=== PATIENT | female | born 1940 | race Caucasian/White ===

== ENCOUNTER 2018-05-28 08:09 | Day surgery (SDC) | payer MEDICARE, BC ==
[~2018-05-28 08:09] MED LIST: SOD CHLORIDE 0.45% 1,000 ML IV
[2018-05-28 09:06] LABS: ADD MAN DIFF? NO
[2018-05-28 09:09] LABS: BASOPHIL # 0.1 10^3/ul (0.0-0.1); BASOPHILS % 0.6 % (0.0-2.0); EOSINOPHILS # 0.5 10^3/ul (0.0-0.5); HEMATOCRIT 37.1 % (37.0-47.0); HEMOGLOBIN 12.1 g/dl (12.0-16.0); LYMPHOCYTES # 1.4 10^3/ul (0.8-2.9); LYMPHOCYTES % 16.2 % (15.0-51.0); MEAN CORPUSCULAR HEMOGLOBIN 29.4 pg (29.0-33.0); MEAN CORPUSCULAR HGB CONC 32.6 g/dl (32.0-37.0); MEAN PLATELET VOLUME 10.3 fl (7.4-10.4); MONOCYTE # 0.6 10^3/ul (0.3-0.9); NEUTROPHIL # 5.8 10^3/ul (1.6-7.5); NEUTROPHILS % 69.8 % (39.0-77.0); PLATELET COUNT 234 10^3/UL (140-415); RED BLOOD COUNT 4.12 10^6/ul (4.20-5.40); RED CELL DISTRIBUTION WIDTH 13.7 % (11.5-14.5)
[2018-05-28 09:09] LABS: WHITE BLOOD COUNT 8.3 10^3/ul (4.8-10.8)
[2018-05-28 09:30] LABS: ANION GAP 12 (8-16); BLOOD UREA NITROGEN 24 mg/dl (7-20); CARBON DIOXIDE 25 mmol/L (21-31); CHLORIDE 106 mmol/L (97-110); CREATININE 1.38 mg/dl (0.44-1.00); GLUCOSE 168 mg/dl (70-220); INR 1.04; POTASSIUM 3.8 mmol/L (3.5-5.1); PROTIME 13.7 Sec (11.9-14.9); PT RATIO 1.1; SODIUM 139 mmol/L (135-144)
[2018-05-28] MEDS ORDERED: NITROGLYCERIN (IC) 100 MCG/ML INJ (09:38)
[2018-05-28] MEDS ORDERED: LIDOCAINE 1% (MDV) 10 ML INJ (09:38)
[2018-05-28] MEDS ORDERED: IODIXANOL LOCM 100 ML BTL (09:38)
[2018-05-28] MEDS ORDERED: VERAPAMIL 5 MG INJ (09:38)
[2018-05-28] MEDS ORDERED: HEPARIN 1000 UNITS/ML 10 ML INJ (09:38)
[2018-05-28] MEDS ORDERED: MIDAZOLAM 1 MG/ML 2 ML INJ (10:25)
[2018-05-28] MEDS ORDERED: FENTAnyl 50 MCG/ML VIAL (10:25)
[2018-05-28] MEDS ORDERED: SOD CHLORIDE 0.45% IV (11:27)
[2018-05-28] MEDS ORDERED: ACETAMINOPHEN 325 MG TAB PO (11:30)
[2018-05-28] MEDS ORDERED: AL HYDROX/MG HYDROX/SIMETH 30 ML CUP PO (11:30)
[2018-05-28] MEDS ORDERED: ONDANSETRON 4 MG INJ IV (11:30)
== END 2018-05-28 15:12 | disposition home or self-care (01) ==
LOC: SDS 08:09
DX: I25.10 Atherosclerotic heart disease of native coronary artery without angina pectoris (principal); I44.30 Unspecified atrioventricular block; I34.0 Nonrheumatic mitral (valve) insufficiency; I48.0 Paroxysmal atrial fibrillation; E11.9 Type 2 diabetes mellitus without complications; N18.9 Chronic kidney disease, unspecified; I12.9 Hypertensive chronic kidney disease with stage 1 through stage 4 chronic kidney disease, or unspecified chronic kidney disease
CPT/HCPCS: 80048; 82962; 85025; 85610; 93458